=== PATIENT | male | born 1965 | race Caucasian/White ===

== ENCOUNTER → 2021-07-23 07:36 | Outpatient (CLI) | payer BC, SELFPAY ==
[2021-07-23 08:09] LABS: Add Manual Diff / Slide Review NO; Basophils Absolute Auto 100 /uL (0-100); Eosinophils Absolute Auto 100 /uL (0-450); Eosinophils Percent Auto 2.3 % (2-4); Hemoglobin 13.9 g/dL (13.5-17.5); Lymphocytes Absolute Auto 1500 /uL (1100-4500); Lymphocytes Percent Auto 23.3 % (25-40); Mean Corpuscular HGB Conc 34.7 % (30-36); Mean Corpuscular Hemoglobin 31.3 PG (26-34); Mean Corpuscular Volume 90.1 fL (80-100); Monocytes Absolute Auto 600 /uL (0-900); Monocytes Percent Auto 8.8 % (3-14); Neutrophils Absolute Auto 4100 /uL (1500-7000); Neutrophils Percent Auto 64.6 % (50-75); Platelet Count 231 X10^3/uL (150-400); Red Blood Cell Count 4.44 X10^6/uL (4.5-5.9); Red Cell Distribution Width 14.1 % (11.6-14.8); White Blood Cell Count 6.3 X10^3/uL (4.5-11.0)
[2021-07-23 08:19] LABS: Alanine Aminotransferase 28 IU/L (<50); Albumin 4.4 g/dL (3.5-5.0); Albumin Globulin Ratio 1.6 (1.0-2.8); Alkaline Phosphatase 64 U/L (38-126); Aspartate Aminotransferase 25 IU/L (17-59); BUN Creatinine Ratio 22.5 (6-22); Bilirubin Total 1.8 mg/dL (0.2-1.3); Blood Urea Nitrogen 18 mg/dL (9-20); C-Reactive Protein Quant 1.2 mg/dL (<1.0); Calcium 9.1 mg/dL (8.4-10.2); Carbon Dioxide 30 mmol/L (22-32); Chloride 103 mmol/L (98-107); Estimated Glomerular Filt Rate > 60 mL/min (>60); Globulin 2.7 g/dL (1.7-4.1); Glucose 103 mg/dL (70-100); HEMOLYSIS < 15 (0-50); Potassium 4.1 mmol/L (3.4-5.1); Sodium 138 mmol/L (137-145); Total Protein 7.1 g/dL (6.3-8.2); Uric Acid 5.3 mg/dL (3.5-8.5)
[2021-07-23 08:25] LABS: Erythrocyte Sedimentation Rate 8 MM/HR (0-15)
== END ==
DX: M05.79 Rheumatoid arthritis with rheumatoid factor of multiple sites without organ or systems involvement (principal); M10.9 Gout, unspecified
CPT/HCPCS: 36415; 80053; 84550; 85025; 85651; 86140

== ENCOUNTER → 2021-09-24 11:58 | Outpatient (CLI) | payer BC, SELFPAY ==
--- NOTE | 2021-09-24 | DI.MRI.S_ITS ---
PROCEDURE: MR CERVICAL SPINE WO CON INDICATIONS: Cervicalgia TECHNIQUE: Noncontrast sagittal T1 spin echo and T2 fast spin echo, sagittal STIR, foraminal oblique sagittal T2 fast spin echo, and axial gradient echo or T2 fast spin echo through the cervical spine. COMPARISON: [facility], CR, XR CERVICAL SPINE 2V OR 3V, 09/24/2021, 12:53. FINDINGS: Image quality: This examination is limited by involuntary motion artifact. Alignment and Curvature: There is straightening of the normal cervical lordosis. Minimal retrolisthesis is seen at the C4-C5 and C5-C6 levels. Bone Marrow: Marrow demonstrates normal overall signal. Spinal Cord: Visualized spinal cord has normal size and signal. No cerebellar tonsillar herniation. Paraspinous Soft Tissues: No paravertebral masses. Prevertebral soft tissues are normal in thickness. C2-C3: The disc height is well-preserved. Loss of disc signal is seen at this level. A mild degree of generalized disc osteophyte complex is seen. Mild facet joint hypertrophy is seen. Moderate bilateral neural foraminal narrowing is seen. Minimal central canal narrowing is seen. C3-C4: The disc height is well-preserved. Loss of disc signal is seen at this level. A mild degree of generalized disc osteophyte complex is seen. There is [id number] bilateral facet hypertrophy. There is moderate bilateral neural foraminal narrowing seen, right worse than left. Mild to moderate central canal narrowing is seen at this level. C4-C5: Moderate loss of disc height is seen. Loss of disc signal is seen. Moderate disc osteophyte complex is seen, with a central/right disc protrusion, with an extruded component seen centrally and inferiorly, as on series 4, images 26 and 27. Moderate facet joint hypertrophy is seen. There is moderate to severe bilateral neural foraminal narrowing seen. Moderate to severe central canal narrowing is seen, associated flattening of the ventral spinal cord. C5-C6: Moderate loss of disc height is seen. Loss of disc signal is seen. Moderate disc osteophyte complex is seen, with a central/left disc osteophyte extrusion. Uncovertebral joint hypertrophy is seen at this level. Moderate facet joint hypertrophy is seen. There is moderate to severe bilateral neural foraminal narrowing seen. Severe central canal narrowing is seen, with associated ventral cord flattening. C6-C7: Moderate loss of disc height is seen. Loss of disc signal is seen. At least moderate disc osteophyte complex is seen, with a central/left disc osteophyte protrusion. Uncovertebral joint hypertrophy is seen at this level. Moderate facet joint hypertrophy is seen. There is moderate to severe bilateral neural foraminal narrowing seen, left worse than right. Moderate central canal narrowing is seen. There is associated mass effect upon the ventral spinal cord. C7-T1: Mild loss of disc height is seen. Loss of disc signal is seen. Moderate generalized disc osteophyte complex is seen. There is a mild central disc osteophyte protrusion. At least moderate facet hypertrophy can be seen. There is moderate to severe right-sided and at least moderate left-sided neural foraminal narrowing. Moderate central canal narrowing is seen. Minimal mass effect can be seen upon the ventral spinal cord. IMPRESSION: Multiple levels of prominent cervical spine degenerative change can be seen, which are worst at the C5-C6 level. Dictated by: Enoch Ahsby M.D. on 09/24/2021 at 14:32 Approved by: Enoch Ashby M.D. on 09/24/2021 at 14:36
--- NOTE | 2021-09-24 | DI.RAD.S_ITS ---
PROCEDURE: XR THORACIC SPINE 3V INDICATIONS: postlaminectomy kyphosis TECHNIQUE: 3 views of the thoracic spine were acquired. COMPARISON: None. FINDINGS: Bones: Postoperative changes of discectomy and pedicular screw and ruddy fixation spanning from T9 through T12. No fractures or dislocations. No suspicious bony lesions. 12 pairs of ribs are noted, and appear intact where visualized. Soft tissues: No paravertebral stripe thickening. IMPRESSION: 1. Postoperative changes in the lower lumbar spine without complication. 2. Mild degenerative changes of the remaining thoracic spine. Dictated by: Fermin Kenny M.D. on 09/24/2021 at 16:46 Approved by: Fermin Kenny M.D. on 09/24/2021 at 16:52
--- NOTE | 2021-09-24 | DI.RAD.S_ITS ---
PROCEDURE: XR LUMBAR SPINE MIN 4V INDICATIONS: postlaminectomy kyphosis TECHNIQUE: 5 views of the lumbar spine acquired, including flexion and extension views. COMPARISON: None. FINDINGS: Bones: 5 nonrib-bearing vertebrae are present. There is normal bony alignment. No vertebral body compression fractures. No suspicious bony lesions. Postoperative changes pedicular screw and ruddy fixation spanning from L3 through S1 and partially visualized fixation from T12 cephalad. There are anterior osteophytes multiple levels. There is been discectomy L3-4, L4-5, and L5-S1. No vertebral body height loss. No hardware abnormality or perihardware lucency. There is limited range of motion on flexion and extension. Disc space narrowing T12-L1. Soft tissues: Overlying bowel gas pattern is normal. No suspicious soft tissue calcifications. Flexion/extension: Limited range of motion with flexion and extension. No instability. IMPRESSION: 1. Postoperative changes as above without complication. 2. Limited range of motion no instability on flexion and extension. Dictated by: Fermin Kenny M.D. on 09/24/2021 at 16:43 Approved by: Fermin Kenny M.D. on 09/24/2021 at 16:46
--- NOTE | 2021-09-24 | DI.RAD.S_ITS ---
PROCEDURE: XR CERVICAL SPINE 2V OR 3V INDICATIONS: cervicalgia TECHNIQUE: 3 view(s) of the cervical spine were acquired. COMPARISON: None. FINDINGS: Bones: No fractures or dislocations to the C6 level. Multilevel degenerative changes are seen with disc space narrowing and large anterior osteophytes at C4 through C7. The lateral masses of C1 appear intact on the odontoid view. A nuchal calcification is noted. No suspicious bony lesions. Soft tissues: No prevertebral soft tissue swelling. IMPRESSION: Multilevel degenerative changes with disc disease at C4-5, C5-6, and C6-7. Dictated by: Fermin Kenny M.D. on 09/24/2021 at 16:23 Approved by: Fermin Kenny M.D. on 09/24/2021 at 16:25
== END ==
DX: M47.812 Spondylosis without myelopathy or radiculopathy, cervical region (principal); M50.321 Other cervical disc degeneration at C4-C5 level; M96.1 Postlaminectomy syndrome, not elsewhere classified; M96.3 Postlaminectomy kyphosis; M47.814 Spondylosis without myelopathy or radiculopathy, thoracic region
CPT/HCPCS: 72040; 72072; 72110; 72141

== ENCOUNTER 2021-10-30 09:53 | Outpatient (RCR) | payer BC, SELFPAY ==
--- NOTE | 2021-10-30 12:45 | PT.OPPOC ---
Physical, Occupational & Speech Therapy At [facility] Current Diagnoses Spinal stenosis, cervical region (10/30/21) Visit Care Team Role Provider Type Jack Robledo MD Attending Provider Non-Staff Family Provider Primary Care Provider Referring Provider Specialty: Orthopedic Surgery Address: [facility] [address], [place], [address] Email: Plan Of Care PT-OP-T Assessment and Plan Start: 10/30/21 17:33 Freq: Status: Active Protocol: Document 10/30/21 12:00 DCW (Rec: 10/31/21 09:40 DCW [id number]) Physical Therapy Assessment Rehab Potential Rehabilitation Potential Poor Evaluation Complexity Number of Personal Factors/Comorbidities 3 or More Number of Body Systems Impaired 4 or More Clinical Presentation at Evaluation Unstable Impairments Impairments Activity Tolerance,Functional Activities,Functional Mobility ,Pain,ROM,Sensation,Strength, Tone Assessment Summary Assessment Pt presents with significant signs and symptoms of severe cervical DJD resulting in neuro symptoms in his upper extremities. Cervical ROM limited to 15? both flexion and extension, rotation 34? L, 40? R, and lateral flexion 12 ? L, 18? R. Shoulder flexion and abduction also severely limited due to UE weakness and pain lifting arms more than 40?. [employer] strength measured at 18 lbs R and 13 lbs L. Neuro symptoms include numbness and muted light touch along C7 and C8 dermatomes on left UE, and burning along C5 bilaterally, as well as diminished 1+ DTR left triceps and 0 DTR left biceps. Pt is unlikely to benefit from skilled therapeutic intervention at this time, should refer back to referring surgeon to follow -up. Physical Therapy Plan Frequency and Duration Duration of Treatment 1 day Plan of Care Start Date 10/30/21 Plan of Care End Date 10/31/21 Discharge Physical Therapy Discharge Comments Referral back to surgeon for other intervention Plan of Care Dates Plan of Care Start Date 10/30/21 Plan of Care End Date 10/31/21 Electronically Signed by: Golden Brown, PT 10/31/21 [id number] If you are in agreement with this Plan of Care, please return a signed and dated copy. I have reviewed this Plan of Care and certify that the skilled therapy services above are required to meet the patient?s needs. Physician Signature Date Printed Name and Credentials Clinical Instructor Signature Printed Name and Credentials
--- NOTE | 2021-10-30 12:45 | PT.OIE ---
Current Diagnoses Spinal stenosis, cervical region (10/30/21) Visit Care Team Role Provider Type Jack Robledo MD Attending Provider Non-Staff Family Provider Primary Care Provider Referring Provider Specialty: Orthopedic Surgery Address: [facility] [address], [place], [address] Email: Physical Therapy Initial Evaluation PT-OP-A Visit Information Start: 10/30/21 17:33 Freq: Status: Active Protocol: Document 10/30/21 12:00 DCW (Rec: 10/30/21 17:44 DCW [id number]) Out-Patient Physical Therapy Visit Information Visit Information Visit Type Initial Evaluation Visit Start Time 12:00 Visit Stop Time 12:45 Total Visit Minutes 45 Visit Number 1 Number of [employer] Visits 0 Evaluation Information Evaluation Date 10/30/21 PT-OP-B Current Condition Start: 10/30/21 17:33 Freq: Status: Active Protocol: Document 10/30/21 12:00 DCW (Rec: 10/30/21 17:57 DCW [id number]) Current Condition History of Current Condition Onset Date Two month history Current Complaints Severe neck pain with radicular upper extremity symptoms History of Current Condition Pt is a 55 year old male presenting to skilled therapy with complaints of worsening cervical pain with radicular symptoms. Pt has a long history of spinal problems, with a history of six prior spinal surgeries. Pt reports he began having neck pain two months ago, and 2-3 weeks ago, symptoms very quickly began to exhibit neuro symptoms, including burning in his deltoids, numbness and tingling down his arms and into his fingers. The tingling and coldness limits his ability to sleep. Pt has additionally noticed substantial UE weakness recently. [place] , and has always been a strong swimmer, but recently has not even been able to tread water . Noticed earlier he was unable to open a jar. Additionally has been getting headaches off and on. Has obtained MRI, and discussed current pain with his former surgeon, who referred him to PT for assessment Prior Treatments and Tests Cervical MRI: IMPRESSION: Multiple levels of prominent cervical spine degenerative change can be seen, which are worst at the C5-C6 level. per Enoch Ashby M.D. on Cervica x-ray: IMPRESSION: Multilevel degenerative changes with disc disease at C4-5, C5-6, and C6-7. per Fermin Kenny M.D. on 09/24 PT-OP-C Subjective Start: 10/30/21 17:33 Freq: Status: Active Protocol: Document 10/30/21 12:00 DCW (Rec: 10/30/21 17:57 DCW [id number]) OP-PT Subjective Patient Comments Patient Comments It's affecting my sleep, I can't lay down without tingling and burning in my shoulders and arms. Patient Reported Progress Worse Patient Questionnaires Quick Dash- Upper Extremity Quick Dash UE Score 59.09 Quick Dash UE Impairment 40 to 59% Impaired (Score 40- 59) OP-PT Pain Assessment Pain Assessment Grid Paper Pain Assessment Grid Completed Yes Location Bilateral Lateral Shoulder Intensity 8 Scale Used Numeric (0 - 10) Description Burning,Shooting PT-OP-F Manual Assessment Start: 10/30/21 17:33 Freq: Status: Active Protocol: Document 10/30/21 12:00 DCW (Rec: 10/30/21 17:44 DCW [id number]) Manual Assessments Soft Tissue Assessment Soft Tissue Mobility Assessment Moderate-severe pain with tenderness to palpation 3/4: wincing and withdraw R>L upper trap, levator scap, suboccipitals, cervical perispinals. PT-OP-H Neuro Start: 10/30/21 17:33 Freq: Status: Active Protocol: Document 10/30/21 12:00 DCW (Rec: 10/30/21 17:44 DCW [id number]) Sensation Evaluation Gross Sensation Gross Sensation Left UE Impaired,Right UE Impaired Sensation Description Numbness Dermatome Impairments C5,C6,C7,C8 Comments Summary Comments Muted sensation in left little finger (C8) and long finger (C7), Burning bilateral Deltoids (C5) Deep Tendon Reflex & Clonus Assessment Deep Tendon Reflex Right Tricep Deep Tendon Reflex 2+ Normal Right Bicep Deep Tendon Reflex 2+ Normal Left Tricep Deep Tendon Reflex 1+ Diminished Left Bicep Deep Tendon Reflex 0 Absent PT-OP-K Range of Motion Start: 10/30/21 17:33 Freq: Status: Active Protocol: Document 10/30/21 12:00 DCW (Rec: 10/30/21 17:44 DCW [id number]) Cervical Spine Range of Motion Cervical Spine Active Degrees Testing Position Sitting Flexion 15 Extension 15 Rotation Left 34 Rotation Right 40 Lateral Flexion Left 12 Lateral Flexion Right 18 ROM Limitations Soft Tissue Tightness,Muscle Tone,Pain Comments Pain worsened with cervical flexion/extension Shoulder Goniometric Range of Motion Shoulder Right Active Shoulder ROM WFL No Testing Position Sitting Flexion 40 Abduction 72 Left Active Shoulder ROM WFL No Testing Position Sitting Flexion 42 Abduction 78 PT-OP-L Special Tests Start: 10/30/21 17:33 Freq: Status: Active Protocol: Document 10/30/21 12:00 DCW (Rec: 10/30/21 17:44 [facility] [id number]) Special Tests Cervical Spine Special Tests Traction Test Results Increased pain Spurling's Test Test Results Positive Slump Test Results Positive Passive Neck Flexion Test Results Positive Foraminal Compression Test Results Positive PT-OP-M Strength Start: 10/30/21 17:33 Freq: Status: Active Protocol: Document 10/30/21 12:00 DCW (Rec: 10/30/21 17:44 [facility] [id number]) Shoulder Strength Shoulder Manual Muscle Testing Right Flexion 2+ Poor+ Abduction (C5) 2+ Poor+ External Rotation 3+ Fair+ Internal Rotation 3+ Fair+ Left Flexion 2 Poor Abduction (C5) 2+ Poor+ External Rotation 3+ Fair+ Internal Rotation 3+ Fair+ Comments Significant pain with all MMT bilaterally Hand Continuous Improvement Coordinator/Pinch Strength Hand Dominance Hand Dominance Mixed Hand Strength Right Continuous Improvement Coordinator (lbs) 18.33 Comments Three-trial average (30#, 15#, 10#) Left Continuous Improvement Coordinator (lbs) 13.33 Comments Three-trial average (15#, 15#, 10#) PT-OP-T Assessment and Plan Start: 10/30/21 17:33 Freq: Status: Active Protocol: Document 10/30/21 12:00 DCW (Rec: 10/31/21 09:40 [facility] [id number]) Physical Therapy Assessment Rehab Potential Rehabilitation Potential Poor Evaluation Complexity Number of Personal Factors/Comorbidities 3 or More Number of Body Systems Impaired 4 or More Clinical Presentation at Evaluation Unstable Impairments Impairments Activity Tolerance,Functional Activities,Functional Mobility ,Pain,ROM,Sensation,Strength, Tone Assessment Summary Assessment Pt presents with significant signs and symptoms of severe cervical DJD resulting in neuro symptoms in his upper extremities. Cervical ROM limited to 15? both flexion and extension, rotation 34? L, 40? R, and lateral flexion 12 ? L, 18? R. Shoulder flexion and abduction also severely limited due to UE weakness and pain lifting arms more than 40?. Continuous [employer] Coordinator strength measured at 18 lbs R and 13 lbs L. Neuro symptoms include numbness and muted light touch along C7 and C8 dermatomes on left UE, and burning along C5 bilaterally, as well as diminished 1+ DTR left triceps and 0 DTR left biceps. Pt is unlikely to benefit from skilled therapeutic intervention at this time, should refer back to referring surgeon to follow -up. Physical Therapy Plan Frequency and Duration Duration of Treatment 1 day Plan of Care Start Date 10/30/21 Plan of Care End Date 10/31/21 Discharge Physical Therapy Discharge Comments Referral back to surgeon for other intervention
== END 2021-11-01 13:12 ==
LOC: PHYS 09:53
PROVIDERS: Family Provider Orthopaedic Surgery; PCP Orthopaedic Surgery; Referring Provider Orthopaedic Surgery; Visit Provider Orthopaedic Surgery
DX: M48.02 Spinal stenosis, cervical region (principal)
CPT/HCPCS: 97163

== ENCOUNTER → 2021-11-07 10:32 | Outpatient (CLI) | payer BC, SELFPAY ==
--- NOTE | 2021-11-07 10:39 | DI.RAD.S_ITS ---
PROCEDURE: XR CHEST 2V INDICATIONS: SPINAL STENOSIS, PRE OP TEST TECHNIQUE: 2 views of the chest were acquired. COMPARISON: None. FINDINGS: Surgical changes and devices: Fixation hardware in lower thoracic spine is seen.. Lungs and pleura: Lungs are clear. No pleural effusions or pneumothorax. Mediastinum: Mediastinal contours are normal. Heart size is normal. Bones and chest wall: No suspicious bony abnormalities. Soft tissues appear unremarkable. IMPRESSION: No acute cardiopulmonary pathology. Dictated by: Spenser Limon M.D. on 11/07/2021 at 12:43 Approved by: Spenser Limon M.D. on 11/07/2021 at 12:43
[2021-11-07 12:23] LABS: Appearance Urine UA CLEAR; Bilirubin Urine UA NEGATIVE (NEGATIVE); Color Urine UA YELLOW; Glucose Urine UA NEGATIVE (Negative); Ketones Urine UA NEGATIVE (NEGATIVE); Leukocyte Esterase Urine UA TRACE (NEGATIVE); Nitrite Urine UA NEGATIVE (Negative); Occult Blood Urine UA NEGATIVE (Negative); Protein Urine UA NEGATIVE (Negative); Specific Gravity Urine UA 1.015 (1.000-1.035); Urobilinogen Urine UA 0.2 E.U./dL (0.2); pH Urine UA 5.5 (4.5-8.0)
[2021-11-07 12:36] LABS: Amorphous Sediment Urine 1+; Bacteria Urine Occasional (0-1); Culture Indicated Urine Specimen Cultured; RBC Urine None Seen (0-5/HPF); Squamous Epithelial Cell Urine 0-1 /HPF (0-5/HPF); WBC Urine 5-10/HPF (0-5/HPF)
[2021-11-07 13:22] LABS: Add Manual Diff / Slide Review NO; Basophils Absolute Auto 0 /uL (0-100); Basophils Percent Auto 0.3 % (0-2); Eosinophils Absolute Auto 100 /uL (0-450); Eosinophils Percent Auto 2.8 % (2-4); Hemoglobin 13.9 g/dL (13.5-17.5); Lymphocytes Absolute Auto 1200 /uL (1100-4500); Lymphocytes Percent Auto 22.1 % (25-40); Mean Corpuscular HGB Conc 34.7 % (30-36); Mean Corpuscular Hemoglobin 31.8 PG (26-34); Mean Corpuscular Volume 91.6 fL (80-100); Monocytes Absolute Auto 400 /uL (0-900); Monocytes Percent Auto 8.5 % (3-14); Neutrophils Absolute Auto 3500 /uL (1500-7000); Neutrophils Percent Auto 66.3 % (50-75); Platelet Count 237 X10^3/uL (150-400); Red Blood Cell Count 4.36 X10^6/uL (4.5-5.9); Red Cell Distribution Width 13.7 % (11.6-14.8); White Blood Cell Count 5.3 X10^3/uL (4.5-11.0)
[2021-11-07 13:42] LABS: Prothrombin Time 11.1 SECONDS (10.1-12.7)
[2021-11-07 13:45] LABS: PTT Partial Thromboplastin Tim 33 SECONDS (26-36)
[2021-11-07 13:54] LABS: BUN Creatinine Ratio 20.5 (6-22); Blood Urea Nitrogen 17 mg/dL (9-20); Carbon Dioxide 29 mmol/L (22-32); Chloride 105 mmol/L (98-107); Estimated Glomerular Filt Rate > 60 mL/min (>60); Glucose 86 mg/dL (70-100); HEMOLYSIS < 15 (0-50); Potassium 3.9 mmol/L (3.4-5.1); Sodium 142 mmol/L (137-145)
== END ==
PROVIDERS: Family Provider Orthopaedic Surgery; PCP Orthopaedic Surgery; Referring Provider Orthopaedic Surgery; Visit Provider Orthopaedic Surgery
DX: M48.02 Spinal stenosis, cervical region (principal); M48.062 Spinal stenosis, lumbar region with neurogenic claudication; M96.3 Postlaminectomy kyphosis; M96.1 Postlaminectomy syndrome, not elsewhere classified; M54.2 Cervicalgia
CPT/HCPCS: 36415; 71046; 80048; 81001; 85025; 85610; 85730; 87086; 93005; 93010

== ENCOUNTER → 2021-12-29 11:22 | Outpatient (CLI) | payer BC, SELFPAY ==
--- NOTE | 2021-12-29 11:23 | DI.MRI.S_ITS ---
PROCEDURE: MR CERVICAL SPINE WO CON INDICATIONS: Radiculopathy, cervical region TECHNIQUE: Noncontrast sagittal T1 spin echo and T2 fast spin echo, sagittal STIR, foraminal oblique sagittal T2 fast spin echo, and axial gradient echo or T2 fast spin echo through the cervical spine. COMPARISON: [facility], MR, MR CERVICAL SPINE WO CON, 09/24/2021, 12:51. FINDINGS: Image quality: Excellent. Alignment and Curvature: There is loss of normal cervical lordosis. Bone Marrow: Marrow demonstrates normal overall signal. Anterior fusion hardware at C4-C7 is present, new since the prior examination. Spinal Cord: Visualized spinal cord has normal size and signal. No cerebellar tonsillar herniation. Paraspinous Soft Tissues: No paravertebral masses. Prevertebral soft tissues are normal in thickness. C2-C3: Moderate disc desiccation. Mild facet and uncovertebral hypertrophy bilaterally. Mild canal stenosis. Mild bilateral foraminal stenosis. No significant change. C3-C4: Moderate disc desiccation. Mild diffuse disc bulge. Mild facet and uncovertebral hypertrophy bilaterally. Mild canal stenosis. Moderate bilateral foraminal stenosis. No significant change. C4-C5: Anterior fusion hardware. Mild residual disc osteophyte complex with superimposed right paracentral protrusion. Moderate facet and uncovertebral hypertrophy bilaterally. Decreased, moderate to severe canal stenosis with decreased, mild right cord flattening. Severe bilateral foraminal stenosis with bilateral C5 nerve root compression is present, as before. C5-C6: Anterior fusion hardware is present. Moderate facet and uncovertebral hypertrophy bilaterally. Decreased, mild canal stenosis. Severe bilateral foraminal stenosis with bilateral C6 nerve root compression, as before. C6-C7: Anterior fusion hardware is present. There is moderate facet and uncovertebral hypertrophy bilaterally. Resolved previously seen canal stenosis. Severe bilateral foraminal stenosis is present, as before, with bilateral C7 nerve root compression. C7-T1: Mild disc height loss and desiccation. Mild diffuse disc bulge with superimposed small central protrusion. Mild facet and uncovertebral hypertrophy bilaterally. Mild canal stenosis. Moderate left and mild right foraminal stenosis. No significant change. IMPRESSION: 1. Postsurgical sequelae. 2. Multilevel degenerative disc and facet disease, as well as uncovertebral hypertrophy. 3. Multilevel canal stenoses, worst at C4-C5 where there is decreased, mild right cord flattening remaining. 4. Multilevel foraminal stenoses, worst at C4-C5, C5-C6, and C6-C7, where there is associated intraforaminal nerve root compression. Recommend correlation with clinical symptoms to ascertain relevance of these findings. Dictated by: Sindy Aquino M.D. on 12/31/2021 at 9:12 Approved by: Sindy Aquino M.D. on 12/31/2021 at 9:18
== END ==
PROVIDERS: Family Provider Orthopaedic Surgery; PCP Orthopaedic Surgery; Referring Provider Orthopaedic Surgery; Visit Provider Orthopaedic Surgery
DX: M50.11 Cervical disc disorder with radiculopathy, high cervical region (principal); M48.02 Spinal stenosis, cervical region; Z98.1 Arthrodesis status
CPT/HCPCS: 72141

== ENCOUNTER → 2022-01-17 11:03 | Outpatient (CLI) | payer BC, SELFPAY | PROVIDERS: Absent Provider Neurological Surgery; Family Provider Orthopaedic Surgery; PCP Orthopaedic Surgery; Referring Provider Orthopaedic Surgery; Visit Provider Orthopaedic Surgery | DX: I61.8 Other nontraumatic intracerebral hemorrhage (principal); J32.8 Other chronic sinusitis; R53.1 Weakness; M75.112 Incomplete rotator cuff tear or rupture of left shoulder, not specified as traumatic; M75.111 Incomplete rotator cuff tear or rupture of right shoulder, not specified as traumatic; M19.012 Primary osteoarthritis, left shoulder; M19.011 Primary osteoarthritis, right shoulder; M25.511 Pain in right shoulder; M25.512 Pain in left shoulder; M25.411 Effusion, right shoulder; M54.12 Radiculopathy, cervical region | CPT/HCPCS: 70551; 73221; 95886; 95911 ==

== ENCOUNTER → 2022-01-17 11:13 | Outpatient (CLI) | payer BC, SELFPAY ==
--- NOTE | 2022-01-17 11:16 | DI.MRI.S_ITS ---
PROCEDURE: MR HEAD/BRAIN WO CON INDICATIONS: Weakness Pain in right shoulder; Pain left shoulder TECHNIQUE: Noncontrast axial T1 spin echo, axial T2 fast spin echo, sagittal and axial FLAIR, coronal T2 fast spin echo, axial gradient echo, axial diffusion and ADC through the brain. COMPARISON: None. FINDINGS: Image quality: Excellent. CSF Spaces: Basal cisterns are patent. No extra-axial fluid collections. Ventricles are normal in size and shape. Brain: No intracranial masses. Focal hemorrhage can be seen within the left insula, as on series 10, image 15. Dean/white matter interface is normal. Brainstem appears normal. Diffusion-weighted images demonstrate no acute ischemic insult. No chronic ischemic insults. Normal intravascular flow voids are present. Skull and face: Calvarium has normal marrow signal. Orbits appear normal. Sinuses: [id number] mucosal thickening is seen within the inferior left maxillary sinus, with milder mucosal thickening seen elsewhere within the paranasal sinuses. There is moderate left-sided and mild right-sided neural foraminal narrowing seen. IMPRESSION: No imaging explanation is found for this patient's presenting symptoms. No findings of acute or subacute infarction can be seen. A focus of hemorrhage is seen within the left insula, which may be related to a vascular malformation or prior trauma. Paranasal sinus disease is seen. There is also mastoid air cell fluid, left worse than right. Dictated by: Enoch Ashby M.D. on 01/17/2022 at 13:59 Approved by: Enoch Ashby M.D. on 01/17/2022 at 14:01
--- NOTE | 2022-01-17 11:16 | DI.MRI.S_ITS ---
PROCEDURE: MR SHOULDER LT WO CON INDICATIONS: Weakness Pain in right shoulder;Pain left shoulder TECHNIQUE: Noncontrast oblique coronal T2 fast spin echo with fat saturation, oblique sagittal T1 spin echo and T2 fast spin echo with fat saturation, axial T1 spin echo and T2 fast spin echo with fat saturation through the shoulder. COMPARISON: None. FINDINGS: Image quality: Excellent. Rotator cuff: Low to moderate grade articular and bursal surface partial thickness tear involving distal supraspinatus at its insertion on the humeral head is seen extending to musculotendinous junction. Distal infraspinatus tendinosis is noted. Distal subscapularis tendon is intact. No full-thickness rotator cuff tendon rupture. Sagittal images demonstrate moderate supraspinatus muscle atrophy. Bones and bursae: No bone marrow contusions or fractures moderate acromioclavicular joint osteoarthritic changes are seen with joint space narrowing, subchondral sclerosis and prominent downward osteophyte formation depressing the musculotendinous junction of supraspinatus. There is small to moderate amount of subacromial subdeltoid bursal fluid. Capsule and soft tissues: Signal abnormality and contour irregularity involving superior anterior labrum at 12 to 2 o'clock position is seen suggestive of superior anterior labral tear. The long head of the biceps tendon appears thickened. The rotator interval appears normal, without fibrosis. The coracohumeral ligament is normal in thickness. IMPRESSION: 1. Low to moderate grade articular and bursal surface partial thickness tear involving distal supraspinatus extending to musculotendinous junction. Distal infraspinatus tendinosis. No full-thickness rotator cuff tendon rupture. Moderate supraspinatus muscle atrophy. 2. Moderate acromioclavicular joint osteoarthritis. No fracture or dislocation. Small to moderate subacromial subdeltoid bursal fluid. 3. Suggestion of superior anterior labral tear at 12 to 2 o'clock position. 4. Proximal intra-articular portion of long head of biceps tendinosis. Dictated by: Spenser Limon M.D. on 01/17/2022 at 14:23 Approved by: Spenser Limon M.D. on 01/17/2022 at 14:26
--- NOTE | 2022-01-17 11:16 | DI.MRI.S_ITS ---
PROCEDURE: MR SHOULDER RT WO CON INDICATIONS: Weakness Pain in right shoulder;Pain left shoulder TECHNIQUE: Noncontrast oblique coronal T2 fast spin echo with fat saturation, oblique sagittal T1 spin echo and T2 fast spin echo with fat saturation, axial T1 spin echo and T2 fast spin echo with fat saturation through the shoulder. COMPARISON: [facility], MR, MR SHOULDER LT WO CON, 01/17/2022, 12:58. FINDINGS: Image quality: Excellent. Rotator cuff: Low to moderate grade articular and bursal surface partial thickness tear involving distal supraspinatus at its insertion on the humeral head is seen extending to musculotendinous junction. Distal infraspinatus tendinosis is noted. Distal subscapularis tendinosis is also seen. No full-thickness rotator cuff tendon rupture. Sagittal images demonstrate mild to moderate supraspinatus muscle atrophy. Bones and bursae: No bone marrow contusions or fractures. Moderate acromioclavicular joint osteoarthritic changes are seen with significant joint space narrowing, subchondral sclerosis and cyst formation and prominent inferior marginal osteophyte formation depressing the musculotendinous junction of supraspinatus. There is small to moderate amount of joint effusion and subacromial subdeltoid bursal fluid. Capsule and soft tissues: Significant signal abnormality and contour irregularity involving superior anterior labrum at 12 to 2 o'clock position suggestive of superior anterior labral tear. The long head of the biceps tendon appears thickened intra-articularly. The rotator interval appears normal, without fibrosis. The coracohumeral ligament is normal in thickness. IMPRESSION: 1. Low to moderate grade articular and bursal surface partial thickness tear involving distal supraspinatus extending to musculotendinous junction. Distal infraspinatus and subscapularis tendinosis. No full-thickness rotator cuff tendon rupture. Mild to moderate supraspinatus muscle atrophy. 2. Moderate acromioclavicular joint osteoarthritis. No fracture or dislocation. Small to moderate amount of joint effusion and subacromial subdeltoid bursal fluid. 3. Suggestion of superior anterior labral tear at 12 to 2 o'clock position. 4. Proximal intra-articular portion of long head of biceps tendinosis. Dictated by: Spenser Limon M.D. on 01/17/2022 at 14:26 Approved by: Spenser Limon M.D. on 01/17/2022 at 14:35
== END ==
PROVIDERS: Family Provider Orthopaedic Surgery; PCP Orthopaedic Surgery; Referring Provider Orthopaedic Surgery; Visit Provider Orthopaedic Surgery
DX: I61.8 Other nontraumatic intracerebral hemorrhage (principal); J32.8 Other chronic sinusitis; R53.1 Weakness; M75.112 Incomplete rotator cuff tear or rupture of left shoulder, not specified as traumatic; M75.111 Incomplete rotator cuff tear or rupture of right shoulder, not specified as traumatic; M19.012 Primary osteoarthritis, left shoulder; M19.011 Primary osteoarthritis, right shoulder; M25.511 Pain in right shoulder; M25.512 Pain in left shoulder; M25.411 Effusion, right shoulder
CPT/HCPCS: 70551; 73221

== ENCOUNTER → 2022-01-22 08:44 | Outpatient (CLI) | payer BC, SELFPAY ==
--- NOTE | 2022-01-22 | DI.CT.S_ITS ---
PROCEDURE: CT CERVICAL SPINE WO CON INDICATIONS: Radiculopathy, cervical region TECHNIQUE: Noncontrast 3 mm thick sections acquired from the skull base to the T4 level. Sagittal and coronal reformats were then constructed. For radiation dose reduction, the following was used: automated exposure control, adjustment of mA and/or kV according to patient size. COMPARISON: [facility], CR, XR CERVICAL SPINE 2V OR 3V, 09/24/2021, 12:53. [facility], MR, MR CERVICAL SPINE WO CON, 12/29/2021, 11:44. FINDINGS: Image quality: Excellent. Bones: No fractures or dislocations. Visualized superior ribs are intact. Anterior fixation hardware is seen C4 through C7. The screws appear well placed. The fusion plate is well seated. Fibular disc spacers are seen throughout the fused region. No findings of hardware failure or hardware loosening are seen. At C7-T1, moderate disc space narrowing is seen. Degenerative changes are seen throughout the fused region, with at least moderate central canal narrowing at C4-C5, with post erected disc osteophyte complex. At least moderate bilateral neural foraminal narrowing can be seen at C4-C5 and C5-C6. Milder degenerative changes are seen elsewhere. Soft tissues: Prevertebral soft tissues are normal in thickness. No paravertebral hematomas. No apical pneumothoraces. IMPRESSION: Unremarkable C4 through C7 postoperative hardware. Degenerative changes are seen, which overall appear worst at the C4-C5 level. Dictated by: Enoch Ashby M.D. on 01/22/2022 at 10:06 Approved by: Enoch Ashby M.D. on 01/22/2022 at 10:09
== END ==
PROVIDERS: Family Provider Orthopaedic Surgery; PCP Orthopaedic Surgery; Referring Provider Neurological Surgery; Visit Provider Neurological Surgery
DX: M47.22 Other spondylosis with radiculopathy, cervical region (principal); M48.02 Spinal stenosis, cervical region; Z98.1 Arthrodesis status
CPT/HCPCS: 72125

== ENCOUNTER → 2022-03-21 08:19 | Outpatient (CLI) | payer BC, SELFPAY ==
--- NOTE | 2022-03-21 | DI.CT.S_ITS ---
PROCEDURE: CT CERVICAL SPINE WO CON INDICATIONS: Radiculopathy, cervical region TECHNIQUE: Noncontrast 3 mm thick sections acquired from the skull base to the T4 level. Sagittal and coronal reformats were then constructed. For radiation dose reduction, the following was used: automated exposure control, adjustment of mA and/or kV according to patient size. COMPARISON: [facility], CT, CT CERVICAL SPINE WO CON, 01/22/2022, 8:49. [facility], MR, MR CERVICAL SPINE WO CON, 03/21/2022, 8:32. FINDINGS: Image quality: Excellent. Bones: No fractures or dislocations. Visualized superior ribs are intact. Stable postoperative changes are seen, with an anterior fixation plate seen C4 through C7. Fibular grafts are seen throughout the postoperative region. No findings of hardware failure or hardware loosening are seen. Underlying degenerative changes are seen, including posteriorly directed endplate osteophytes at the C4-C5 level. Moderate to severe bilateral neural foraminal narrowing can be seen at C4-C5, C5-C6, and C6-C7. Moderate disc space narrowing can be seen at C7-T1. Soft tissues: Prevertebral soft tissues are normal in thickness. No paravertebral hematomas. No apical pneumothoraces. IMPRESSION: Unremarkable postoperative hardware. Degenerative changes are seen, which are worst at C4-C5 and are better seen on the accompanying cervical spine MRI. Dictated by: Enoch Ashby M.D. on 03/21/2022 at 9:02 Approved by: Enoch Ashby M.D. on 03/21/2022 at 9:05
--- NOTE | 2022-03-21 | DI.MRI.S_ITS ---
PROCEDURE: MR CERVICAL SPINE WO CON INDICATIONS: Radiculopathy, cervical region TECHNIQUE: Noncontrast sagittal T1 spin echo and T2 fast spin echo, sagittal STIR, foraminal oblique sagittal T2 fast spin echo, and axial gradient echo or T2 fast spin echo through the cervical spine. COMPARISON: [facility], MR, MR CERVICAL SPINE WO CON, 12/29/2021, 11:44. FINDINGS: Image quality: Excellent. Alignment and Curvature: There is loss of normal cervical lordosis. Roughly 3 mm of retrolisthesis of C4 on C5. Bone Marrow: Marrow demonstrates normal overall signal. Anterior fusion hardware at C4-C7. Mild reactive signal throughout the endplates of the cervical spine. Spinal Cord: Visualized spinal cord has normal size and signal. No cerebellar tonsillar herniation. Paraspinous Soft Tissues: No paravertebral masses. Prevertebral soft tissues are normal in thickness. C2-C3: Moderate disc desiccation. Mild facet and uncovertebral hypertrophy. Mild canal stenosis. Mild bilateral foraminal stenosis. No significant change. C3-C4: Moderate disc desiccation. Mild diffuse disc bulge. Mild bilateral facet and uncovertebral hypertrophy. Mild canal stenosis. Moderate bilateral foraminal stenosis. No significant change. C4-C5: Anterior fusion hardware. Mild residual disc osteophyte complex with superimposed broad-based right paracentral protrusion. Moderate facet and uncovertebral hypertrophy bilaterally. Moderate to severe canal stenosis with mild right cord flattening. Severe bilateral foraminal stenosis with bilateral C5 nerve root compression. No significant change. C5-C6: Anterior fusion hardware. Moderate facet and uncovertebral hypertrophy bilaterally. Mild canal stenosis. Severe bilateral foraminal stenosis with bilateral C6 nerve root compression. No significant change. C6-C7: Anterior fusion hardware. Moderate facet and uncovertebral hypertrophy bilaterally. No significant canal stenosis. Moderate to severe bilateral foraminal stenosis, right greater than left, with bilateral C7 nerve root compression. No significant change. C7-T1: Moderate disc desiccation. Mild disc height loss and diffuse disc bulge with superimposed small central protrusion. Mild bilateral facet and uncovertebral hypertrophy. Mild canal stenosis. Moderate left and [id number] right foraminal stenosis. No significant change. IMPRESSION: 1. Postsurgical sequelae. 2. Multilevel degenerative disc and facet disease, as well as uncovertebral hypertrophy. 3. Multilevel canal stenoses, worst at C4-C5 where there is mild cord flattening. 4. Multilevel foraminal stenoses, worst at C4-C5, C5-C6, and C6-C7 where there is associated intraforaminal nerve root compression. Recommend correlation with clinical symptoms to ascertain relevance of these findings. Dictated by: Sindy Aquino M.D. on 03/21/2022 at 9:35 Approved by: Sindy Aquino M.D. on 03/21/2022 at 9:39
== END ==
PROVIDERS: Family Provider Orthopaedic Surgery; PCP Orthopaedic Surgery; Referring Provider Orthopaedic Surgery; Visit Provider Orthopaedic Surgery
DX: M50.11 Cervical disc disorder with radiculopathy, high cervical region (principal); M48.02 Spinal stenosis, cervical region; M47.22 Other spondylosis with radiculopathy, cervical region; Z98.1 Arthrodesis status
CPT/HCPCS: 72125; 72141

== ENCOUNTER → 2022-07-01 15:35 | Outpatient (CLI) | payer BC, SELFPAY ==
[2022-07-01 17:04] LABS: Add Manual Diff / Slide Review NO; Basophils Absolute Auto 0 /uL (0-100); Basophils Percent Auto 0.2 % (0-2); Eosinophils Absolute Auto 100 /uL (0-450); Eosinophils Percent Auto 1.7 % (2-4); Hematocrit 40.6 % (41-53); Lymphocytes Absolute Auto 1400 /uL (1100-4500); Lymphocytes Percent Auto 21.8 % (25-40); Mean Corpuscular HGB Conc 34.5 % (30-36); Mean Corpuscular Hemoglobin 30.2 PG (26-34); Mean Corpuscular Volume 87.6 fL (80-100); Monocytes Absolute Auto 500 /uL (0-900); Monocytes Percent Auto 7.5 % (3-14); Neutrophils Absolute Auto 4600 /uL (1500-7000); Neutrophils Percent Auto 68.8 % (50-75); Platelet Count 264 X10^3/uL (150-400); Red Blood Cell Count 4.64 X10^6/uL (4.5-5.9); Red Cell Distribution Width 14.7 % (11.6-14.8); White Blood Cell Count 6.7 X10^3/uL (4.5-11.0)
[2022-07-01 17:39] LABS: Alanine Aminotransferase 37 IU/L (<50); Albumin 4.3 g/dL (3.5-5.0); Albumin Globulin Ratio 1.7 (1.0-2.8); Alkaline Phosphatase 91 U/L (38-126); Aspartate Aminotransferase 29 IU/L (17-59); BUN Creatinine Ratio 17.3 (6-22); Bilirubin Total 1.5 mg/dL (0.2-1.3); Blood Urea Nitrogen 14 mg/dL (9-20); Carbon Dioxide 28 mmol/L (22-32); Chloride 102 mmol/L (98-107); Estimated Glomerular Filt Rate > 60 mL/min (>60); Globulin 2.6 g/dL (1.7-4.1); Glucose 84 mg/dL (70-100); HEMOLYSIS < 15 (0-50); Potassium 3.8 mmol/L (3.4-5.1); Sodium 140 mmol/L (137-145); Total Protein 6.9 g/dL (6.3-8.2); Uric Acid 5.9 mg/dL (3.5-8.5)
== END ==
PROVIDERS: Family Provider Orthopaedic Surgery
DX: M1A.9XX1 Chronic gout, unspecified, with tophus (tophi) (principal); M05.79 Rheumatoid arthritis with rheumatoid factor of multiple sites without organ or systems involvement
CPT/HCPCS: 36415; 80053; 84550; 85025